=== PATIENT | male | born 1980 ===

== ENCOUNTER 2016-12-20 18:05 | Emergency (ER) | payer OTHER ==
[2016-12-20 18:05] VITALS: BMI 28.1
--- NOTE | 2016-12-20 19:34 | C.PDOC ---
History Of Present Illness 36 y/o male presents to the ED with complains of left sided head, neck and chest pain radiating down left arm. Pain has been constant the past 3 days, no exacerbating factors. History of gastritis and migraines. Denies vision changes , fever, chills, vomiting or any other complaints. Time Seen by Provider: 12/20/16 19:21 Chief Complaint (Nursing): Chest Pain History Per: Patient History/Exam Limitations: no limitations Onset/Duration Of Symptoms: Days Current Symptoms Are (Timing): Still Present Severity: Mild Quality: "Pain" Exacerbating Factors: None Alleviating Factors: None Recent travel outside of the [place]: No Past Medical History Reviewed: Historical Data, Nursing Documentation, Vital Signs Vital Signs: Last Vital Signs Temp 98.7 F 12/21/16 01:10 Pulse 76 12/21/16 01:10 Resp 18 12/21/16 01:10 BP 144/94 H 12/21/16 01:10 Pulse Ox 98 12/21/16 01:10 - Medical History PMH: Asthma, Gastritis, Migraine Surgical History: Endoscopy Family History: States: Unknown Family Hx - Social History Hx Alcohol Use: Yes Hx Substance Use: No - Immunization History Hx Tetanus Toxoid Vaccination: No Hx Influenza Vaccination: No Hx Pneumococcal Vaccination: No Review Of Systems Except As Marked, All Systems Reviewed And Found Negative. Constitutional: Negative for: Fever, Chills Eyes: Negative for: Vision Change Cardiovascular: Positive for: Chest Pain Gastrointestinal: Negative for: Vomiting Musculoskeletal: Positive for: Neck Pain, Arm Pain (left) Neurological: Positive for: Headache (left sided) Physical Exam - Physical Exam Appears: Non-toxic, No Acute Distress Skin: Warm, Dry, No Rash Head: Atraumatic, Normacephalic Eye(s): bilateral: PERRL, EOMI Neck: Normal ROM, No Midline Cervical Tenderness, No Paracervical Tenderness, Supple Chest: Symmetrical, No Tenderness Cardiovascular: Rhythm Regular, No Murmur Respiratory: Normal Breath Sounds, No Rales, No Rhonchi, No Wheezing Gastrointestinal/Abdominal: Soft, No Tenderness Extremity: Normal ROM, No Tenderness Extremity: Bilateral: Atraumatic Neurological/Psych: Oriented x3, Normal Motor, Normal Sensation ED Course And Treatment - Laboratory Results Result Diagrams: 12/20/16 19:50 12/20/16 19:50 ECG: Interpreted By Me, Viewed By Me ECG Rhythm: Sinus Rhythm Interpretation Of ECG: Normal axis intervals, no acute ischemia Rate From EC (BPM) O2 Sat by Pulse Oximetry: 96 (on room air) Pulse Ox Interpretation: Normal - CT Scan/US CT head Other Rad Studies (CT/US): Read By Radiologist, Radiology Report Reviewed CT/US Interpretation: EXAM: CT Head Without Intravenous Contrast. CLINICAL HISTORY: 36 years old, male; Signs and symptoms; Dizziness; Additional info: MELENDEZ HTN. TECHNIQUE: Axial computed tomography images of the head/brain without intravenous contrast. This CT exam. was performed using one or more of the following dose reduction techniques: automated exposure. control, adjustment of the mA and/or kV according to patient size, and/or use of iterative. reconstruction technique. EXAM DATE/TIME: 12/20/2016 7:38 PM. COMPARISON: No relevant prior studies available. FINDINGS: Brain: Unremarkable. No hemorrhage. No significant white matter disease. No edema. Ventricles: Unremarkable. No ventriculomegaly. Bones/joints: Unremarkable. No acute fracture. Soft tissues: Unremarkable. Sinuses: Unremarkable as visualized. No acute sinusitis. Mastoid air cells: Unremarkable as visualized. No mastoid effusion. IMPRESSION: No acute findings. Thank you for allowing us to participate in the care of your patient. Dictated and Authenticated by: Darlene Lucero MD. 12/20/2016 8:58 PM Eastern Time ([place] & [place]) Medical Decision Making Medical Decision Making: the pts BP came down spontaneously. his pain improved significantly with toradol. he is comfortable w plan for dc, start hctz, f/u w pcp tomorrow. return precautions advised. HEART score low risk PERC negative Disposition - Disposition Referrals: Ana Laura MD [Medical Doctor] - Disposition: HOME/ ROUTINE Disposition Time: 01:00 Condition: IMPROVED Additional Instructions: Please follow up with your doctor tomorrow. Return to the ER for any worsening symptoms or for any other concerns. Prescriptions: Hydrochlorothiazide [Microzide] 12.5 mg PO DAILY #30 cap Instructions: Hypertension (ED) Forms: Gen Discharge Inst Andorran Print Language: SOMALI - Clinical Impression Clinical Impression: Chest pain, Hypertension - Scribe Statement The provider has reviewed the documentation as recorded by the Xochilt Jiménez Provider Attestation: All medical record entries made by the Scribe were at my direction and personally dictated by me. I have reviewed the chart and agree that the record accurately reflects my personal performance of the history, physical exam, medical decision making, and the department course for this patient. I have also personally directed, reviewed, and agree with the discharge instructions and disposition.
[2016-12-20] MEDS ORDERED: Labetalol 5 mg/ml Inj 20ML IVP STA (19:38)
[2016-12-20 19:57] LABS: BASO # 0.1 K/uL (0.0-0.2); BASO % 1.3 % (0.0-2.0); EOS # 0.2 K/uL (0.0-0.7); HEMATOCRIT 43.3 % (35.0-51.0); LYMPH # 2.8 K/uL (1.0-4.3); LYMPH % 33.2 % (20.0-40.0); MEAN CELL VOLUME 84.4 fL (80.0-94.0); MEAN CORPUSCULAR HEMOGLOBIN 28.8 pg (27.0-31.0); MEAN CORPUSCULAR HGB CONC 34.1 g/dL (33.0-37.0); MEAN PLATELET VOLUME 7.6 fL (7.2-11.7); MONO # 0.7 K/uL (0.0-0.8); MONO % 8.7 % (0.0-10.0); NRBC % 0.2 % (0.0-2.0); RED CELL DISTRIBUTION WIDTH 13.5 % (11.5-14.5); WHITE BLOOD COUNT 8.6 K/uL (4.8-10.8)
[2016-12-20 20:04] LABS: CHLORIDE 97 mmol/L (98-107); SODIUM 140 mmol/L (132-148)
[2016-12-20 20:06] LABS: BILIRUBIN,TOTAL 0.5 mg/dL (0.2-1.3); CARBON DIOXIDE 27 mmol/L (22-30); GFR AFRICAN-AMERICAN > 60
[2016-12-20 20:07] LABS: ALB/GLOB RATIO 1.4 (1.0-2.1); ALKALINE PHOSPHATASE 54 U/L (38-126); ALT/SGPT 35 U/L (21-72); AST/SGOT 30 U/L (17-59); BLOOD UREA NITROGEN 14 mg/dL (9-20); CALCIUM 9.2 mg/dl (8.6-10.4); GLUCOSE,RANDOM 96 mg/dL (75-110)
[2016-12-20 21:29] LABS: RBC URINE 1 /hpf (0-3); URINE BACTERIA RARE (<OCC); URINE BILIRUBIN NEGATIVE (NEGATIVE); URINE BLOOD NEGATIVE (NEGATIVE); URINE COLOR Yellow (YELLOW); URINE GLUCOSE (UA) NORMAL (Normal); URINE KETONE NEGATIVE (NEGATIVE); URINE LEUKOCYTE ESTERASE NEG Leu/uL (Negative); URINE PROTEIN NEGATIVE (NEGATIVE); URINE UROBILINOGEN NORMAL mg/dL (0.2-1.0); WBC URINE 1 /hpf (0-5)
[2016-12-21 01:11] VITALS: BP 144/94; PULSE 76; RESP 18; TEMP 98.7
--- NOTE | 2016-12-21 08:10 | CT ---
PROCEDURE: CT HEAD WITHOUT CONTRAST. HISTORY: [place] htn COMPARISON: None available. TECHNIQUE: Axial computed tomography images were obtained through the head/brain without intravenous contrast. Radiation dose: Total exam DLP = 1137.08 mGy-cm. FINDINGS: HEMORRHAGE: No intracranial hemorrhage. BRAIN: No mass effect or edema. No atrophy or chronic microvascular ischemic changes. VENTRICLES: Unremarkable. No hydrocephalus. CALVARIUM: Unremarkable. PARANASAL SINUSES: Unremarkable as visualized. No significant inflammatory changes. MASTOID AIR CELLS: Unremarkable as visualized. No inflammatory changes. OTHER FINDINGS: None. IMPRESSION: No evidence of acute intracranial hemorrhage intracranial collection mass effect or midline shift. Preliminary report was submitted by virtual Radiology.
--- NOTE | 2016-12-21 08:12 | RAD ---
HISTORY: cp COMPARISON: Comparison is made to the previous study dated 11/13/2015 FINDINGS: LUNGS: No active pulmonary disease. PLEURA: No significant pleural effusion identified, no pneumothorax apparent. CARDIOVASCULAR: Normal. OSSEOUS STRUCTURES: No significant abnormalities. VISUALIZED UPPER ABDOMEN: Normal. OTHER FINDINGS: None. IMPRESSION: No active disease. No significant interval change.
--- NOTE | 2016-12-21 12:12 | CARD ---
APPROVED REPORT EKG Measurement Heart [id number] CA [id number] <Conclusion> Normal sinus rhythm Normal ECG
[2016-12-21 13:36] VITALS: O2SAT 96
== END 2016-12-21 01:11 | disposition home or self-care (01) ==
LOC: C.ER 18:05
DX: I10 Essential (primary) hypertension (principal); R07.9 Chest pain, unspecified
CPT/HCPCS: 70450; 71010; 80053; 81001; 84484; 85025; 93005; 96374; 99285; J1885